=== PATIENT | female | born 1955 | race Asian ===

== ENCOUNTER → 2017-10-20 | Outpatient (CLI) | payer BC, MEDICAID ==
[~2017-10-20] MED LIST: ASPI325T17 PO; ATEN25TA PO; ATOR20TA9 PO; GEMF600T3 PO; HYDR-3240 PO; LEVO88TA4 PO; SENN-25 PO; TRAM50TA2 PO; TRIA50CA PO; VENL75TA PO
== END | disposition home or self-care (01) ==
LOC: CFH 15:45
PROVIDERS: ATTEND Internal Medicine
DX: R51 Headache (principal)
CPT/HCPCS: 70450

== ENCOUNTER → 2020-04-11 | Outpatient (CLI) | payer BC, OTHER ==
[~2020-04-11] MED LIST changes: +ATOR20TA37 PO; -ATOR20TA9 PO; -GEMF600T3 PO; +GEMF600T8 PO
== END | disposition home or self-care (01) ==
LOC: CFH 10:58
PROVIDERS: ATTEND Internal Medicine
DX: Z12.2 Encounter for screening for malignant neoplasm of respiratory organs (principal); F17.210 Nicotine dependence, cigarettes, uncomplicated; I25.10 Atherosclerotic heart disease of native coronary artery without angina pectoris; I70.0 Atherosclerosis of aorta; M85.88 Other specified disorders of bone density and structure, other site
CPT/HCPCS: G0297

== ENCOUNTER 2021-04-03 12:41 | Inpatient (IN) | payer BC ==
[~2021-04-03] VITALS: Ht 154.9 cm; Wt 66.5 kg
[~2021-04-03 12:41] MED LIST changes: +GEMF-31 PO; -GEMF600T8 PO; +HYDR-2214 PO; -HYDR-3240 PO
[2021-04-03 13:04] LABS: BASOPHILS % (AUTO) 1 % (0-1); EOSINOPHILS % (AUTO) 1 % (1-7); LYMPHOCYTES % (AUTO) 23 % (22-44); MEAN CORPUSCULAR HEMOGLOBIN 30.6 pg (27.0-34.8); MEAN CORPUSCULAR HGB CONC 34.4 g/dL (32.4-35.8); MEAN PLATELET VOLUME 6.9 fL (7.4-10.4); MONOCYTES % (AUTO) 3 % (2-9); NEUTROPHILS % (AUTO) 72 % (42-75); PLATELET COUNT 337 x10^3/uL (130-400); RED BLOOD COUNT 5.48 x10^6/uL (3.82-5.3); RED CELL DISTRIBUTION WIDTH 14.7 % (9.6-15.2)
[2021-04-03 13:15] LABS: INTERNATIONAL NORMALIZED RATIO 0.94 (0.93-1.1); PROTHROMBIN TIME 10.1 Seconds (9.6-11.5)
--- NOTE | 2021-04-03 13:20 | NUR ---
late entry d/t patient care: code neuro cancelled per edmd, tpa not indicated as pt is a hemmorhagic stroke
--- NOTE | 2021-04-03 13:20 | NUR ---
LATE ENTRY FOR 1320 D/T PATIENT CARE: STROKE PRE-ALERT CALLED AT 1237 PT [place] [facility] [place] PT ARRIVED WITH NPA IN PLACE, NON-REBREATHER AT 15L/MIN , SNORING RESPIRATIONS ROOM AIR SAT AIRCRAFT LINE ASSEMBLER 80%, FSBS AIRCRAFT LINE ASSEMBLER 130 PT INTUBATED AT 1300, 7.5 SIZE ET TUBE. PROPOFOL STARATED AT 5 MCG/KG/HR. PT TO CT AT 1305 PT BACL FRP, CT AT 1320, PT TO CT ACCOMPANIED BY THIS NUCLEAR FUEL ENRICHMENT TECHNICIAN PRESENT ON ARRIVAL, UPDATED CONTINUOUSLY Addendum: 04/03/21 at 1607 by ELI LATE ENTRY FOR 1320 D/T PATIENT CARE: STROKE PRE-ALERT CALLED AT 1237 PT AR[place]IV[place] [facility] [place] 1240 PT ARRIVED WITH NPA IN PLACE, NON-REBREATHER AT 15L/MIN , SNORING RESPIRATIONS ROOM AIR SAT AIRCRAFT LINE ASSEMBLER 80%, FSBS AIRCRAFT LINE ASSEMBLER 130 PT INTUBATED AT 1300, 7.5 SIZE ET TUBE 23 CM AT LIP. PROPOFOL STARATED AT 5 MCG/KG/HR. PT TO CT AT 1305 PT BACK FROM, CT AT 1320, PT TO CT ACCOMPANIED BY THIS NUCLEAR FUEL ENRICHMENT TECHNICIAN PRESENT ON ARRIVAL, UPDATED CONTINUOUSLY
[2021-04-03] MEDS ORDERED: PLEASE ENTER HEIGHT AND WEIGHT MC SCH (13:30)
--- NOTE | 2021-04-03 13:31 | NUR ---
NICARDIPINE REQUESTED FROM PHARMACY
[2021-04-03] MEDS ORDERED: VECURONIUM 10 MG IVPush ONE (14:00)
[2021-04-03] MEDS ORDERED: PROPOFOL 100 ML IV PRN (14:00)
[2021-04-03] MEDS ORDERED: ETOMIDATE 40 MG/20 ML IVPush ONE (14:00)
--- NOTE | 2021-04-03 14:05 | NUR ---
REPORT GIVEN TO DISH CLOTH INSPECTORHUSAM RAND.
--- NOTE | 2021-04-03 14:10 | NUR ---
NEUROSURGEON AT BEDSIDE. PT RESPONSIVE TO PAINFUL STIMULI. SURGEON GIVEN REPORT. NICARDIPINE TITRATED TO 5 MG/HR, REPEAT BP NOW 126/54. NICARDIPINE TITRATED BACK DOWN TO 3 MG/HR PER ERP GRAUSZ'S ORDER.
--- NOTE | 2021-04-03 14:21 | NUR ---
HOSPITALIST MD COURTNEY AT BEDSIDE FOR ASSESSMENT. REPORT GIVEN TO . REPEAT BP 115/55, NICARDIPINE TITRATED DOWN TO 2.5MG/HR.
[2021-04-03] MEDS ORDERED: ACETAMINOPHEN 325 MG TABLET PO PRN ×2 (14:30→16:30)
[2021-04-03] MEDS ORDERED: ENALAPRILAT 1.25 MG/ML, 2ML IVPush PRN (14:30)
[2021-04-03] MEDS ORDERED: LABETALOL 5MG/ML, 20ML IVPush PRN (14:30)
[2021-04-03] MEDS ORDERED: OMNIPAQUE 350 MG/ML, 100ML BOTTLE ONE (14:30)
[2021-04-03] MEDS ORDERED: OXYcodone IR 5MG TABLET PO PRN (14:30)
[2021-04-03] MEDS ORDERED: morphine SULFATE 10 MG/ML, 1ML IVPush PRN (14:30)
[2021-04-03] MEDS ORDERED: POLYETHYLENE GLYCOL 17 GM PACKET PO PRN (14:30)
[2021-04-03] MEDS ORDERED: BISACODYL 10 MG SUPP PR PRN (14:30)
[2021-04-03] MEDS ORDERED: LORazepam 2 MG/ML, 1ML IVPush PRN ×2 (14:30→16:30)
[2021-04-03] MEDS ORDERED: SODIUM CHLORIDE FLUSH 10ML SYR IVF PRN (14:30)
[2021-04-03] MEDS ORDERED: ONDANSETRON 2MG/ML, 2ML IVPush PRN ×2 (14:30→16:30)
--- NOTE | 2021-04-03 14:30 | NUR ---
LATE ENTRY FOR 1430: RT AT BEDSIDE, NOTIFIED SPO2 90%, FIO2 ADJUSTED FROM 40% TO 60%. OTHER VENT SETTINGS REMAIN THE SAME. 450ML TIDAL VOLUME, PEEP 5, RESP RATE 20.
[2021-04-03] MEDS ORDERED: VANCOMYCIN 1,000 MG ONE (14:32)
[2021-04-03] MEDS ORDERED: EPINEPHRINE 1 MG/ML, 1ML ONE (14:32)
[2021-04-03] MEDS ORDERED: THROMBIN 5,000 UNIT VIAL TP ONE (14:32)
[2021-04-03] MEDS ORDERED: BUPIVACAINE/PF 0.5% ONE (14:32)
[2021-04-03] MEDS ORDERED: BACITRACIN OINT 500U/GM, 15 GM ONE (14:43)
--- NOTE | 2021-04-03 14:45 | NUR ---
COVID SAMPLE COLLECTED AND WALKED TO LAB
[2021-04-03 14:51] VITALS: BP 136/62
--- NOTE | 2021-04-03 15:00 | NUR ---
PT TO OR AT THIS TIME, REPORT GIVEN TO ANESTHESIOLOGIST AT BEDSIDE. NG IN PLACE [employer], UNABLE TO PLACE ELAM PRIOR TO PT DEPART FOLEYS OUT OF STOCK IN ED, PER ANESTHESIOLOGIST, PT OK TO GO UP WITHOUT LEAM, OR TO PLACE ELAM. UPON DEPART, PT LOCALIZES TO PAINFUL STIMULI, PUPILS EQUAL ROUND AND REACTIVE AT 2MM. PT MOVES ALL EXTREMITIES WITH EXCEPTION TO LEFT ARM, THIS IS BASELINE SINCE ARRIVAL. FACE SYMMETRICAL. FAMILY NOTIFIED OF DEPARTURE, MULTIPLE FAMILY MEMBERS AT BEDSIDE PRIOR TO TRANSPORT.
[2021-04-03] MEDS ORDERED: CEFAZOLIN 1,000 MG ONE (15:25)
[2021-04-03] MEDS ORDERED: ROCURONIUM 10MG/ML,5ML ONE (15:25)
[2021-04-03] MEDS ORDERED: FENTANYL PF 100 MCG/2ML ONE (15:25)
[2021-04-03] MEDS ORDERED: BUPIVACAINE/PF-EPI 0.5% 1:200K INFIL ONE (15:38)
--- NOTE | 2021-04-03 16:01 | NUR ---
LATE ENTRY D/T PATIENT CARE: PT'S SISTER PROVIDED PHONE NUMBER BEFORE LEAVING IN CASE STAFF NEED TO CONTACT FAMILY. NAME MOUNIKA MARRUFO, PHONE [phone]
--- NOTE | 2021-04-03 16:21 | NUR ---
REPORT GIVEN TO CCU HUSAM SILVERMAN. THIS RN UNABLE TO COMPLETE MED REC FAMILY WAS UNABLE TO RECALL PT'S HOME MEDS, AND PT TOO ALTERED TO COMPLETE MED REC ON ARRIVAL. RECEIVING HUSAM SILVERMAN AND HOSPITALIST SHERWIN WALDRON.
[2021-04-03] MEDS ORDERED: MEPERIDINE/PF 25MG/0.5ML IVPush PRN (16:30)
[2021-04-03] MEDS ORDERED: LABETALOL 5MG/ML, 20ML IV PRN (16:30)
[2021-04-03] MEDS ORDERED: FENTANYL PF 100 MCG/2ML IV PRN (16:30)
[2021-04-03] MEDS ORDERED: ALBUTEROL SULFATE 2.5 MG/3 ML NPPB PRN (16:30)
[2021-04-03] MEDS ORDERED: MIDAZOLAM 1 MG/ML, 2ML IV PRN (16:30)
[2021-04-03] MEDS ORDERED: HYDROmorphone 1 MG/ML, 1ML INJ IVPush PRN (16:30)
[2021-04-03] MEDS ORDERED: PROMETHAZINE 12.5 MG SUPP PR PRN (16:30)
[2021-04-03] MEDS ORDERED: DIAZEPAM 5 MG/ML, 2ML IVPush PRN (16:30)
[2021-04-03] MEDS ORDERED: EPHEDRINE 50 MG/ML, 1ML IVPush PRN (16:30)
[2021-04-03] MEDS ORDERED: OXYcodone 5 MG/5 ML ORAL.SOL UDC PO PRN (16:30)
[2021-04-03] MEDS ORDERED: hydrALAzine 20 MG/ML, 1ML IV PRN (16:30)
[2021-04-03] MEDS ORDERED: DIPHENHYDRAMINE 50 MG/ML, 1ML IVPush PRN ×2 (16:30)
[2021-04-03] MEDS ORDERED: PROMETHAZINE 25 MG/ML, 1ML IVPush PRN (16:30)
[2021-04-03] MEDS ORDERED: ETOMIDATE 20 MG/10 ML ONE (19:19)
[2021-04-03] MEDS ORDERED: 0.9 % SODIUM CHLORIDE 10 ML VIAL ONE (19:19)
[2021-04-03] MEDS ORDERED: PROPOFOL 10 MG/ML, 100ML IV ONE (19:19)
[2021-04-03] MEDS ORDERED: VECURONIUM 10 MG ONE (19:19)
[2021-04-03] MEDS ORDERED: DEXTROSE 4 GM TAB.CHEW PO PRN (20:30)
[2021-04-03] MEDS ORDERED: PHARMACY MAY ADJ FOR RENAL FX MC SCH (20:30)
[2021-04-03] MEDS ORDERED: FENTANYL PF 1,000 MCG in SODIUM CHLORIDE 0.9% 80 ML IV PRN (20:30)
[2021-04-03] MEDS ORDERED: NOREPINEPHRINE 8 MG in SODIUM CHLORIDE 0.9% 242 ML IV PRN (20:30)
[2021-04-03] MEDS ORDERED: LIDOCAINE-MPF 1%, 2ML ENDO PRN (20:30)
[2021-04-03] MEDS ORDERED: DEXTROSE 50%, 50ML SYRINGE IVPush PRN (20:30)
[2021-04-03] MEDS ORDERED: GLUCAGON 1 MG IM PRN (20:30)
[2021-04-03] MEDS: LEVETIRACETAM 500 MG in SODIUM CHLORIDE 0.9% 100 ML IV SCH (22:13)
[2021-04-03] MEDS: ATENOLOL 25 MG TABLET PO SCH (22:13)
[2021-04-03] MEDS: NS + 20MEQ KCL 1,000 ML IV SCH (22:13)
[2021-04-03] MEDS: SODIUM CHLORIDE FLUSH 10ML SYR IVF SCH (22:14)
[2021-04-03] MEDS: ATORVASTATIN 20 MG TABLET PO SCH (22:14)
[2021-04-03] MEDS: GEMFIBROZIL 600 MG TABLET PO SCH (22:14)
[2021-04-03] MEDS: FAMOTIDINE 20 MG/2 ML IVPush SCH (22:15)
[2021-04-04] MEDS: PROPOFOL 100 ML IV PRN ×3 (01:07→13:55)
[2021-04-04 04:47] LABS: BASOPHILS % (AUTO) 0 % (0-1); EOSINOPHILS % (AUTO) 0 % (1-7); LYMPHOCYTES % (AUTO) 9 % (22-44); MEAN CORPUSCULAR HEMOGLOBIN 29.7 pg (27.0-34.8); MEAN CORPUSCULAR HGB CONC 33.6 g/dL (32.4-35.8); MEAN PLATELET VOLUME 6.8 fL (7.4-10.4); MONOCYTES % (AUTO) 5 % (2-9); NEUTROPHILS % (AUTO) 86 % (42-75); PLATELET COUNT 318 x10^3/uL (130-400); RED BLOOD COUNT 4.61 x10^6/uL (3.82-5.3); RED CELL DISTRIBUTION WIDTH 14.9 % (9.6-15.2)
[2021-04-04 05:00] LABS: ALBUMIN 3.1 g/dL (3.4-5.0); ANION GAP 6 mmol/L (5-15); CALCIUM 8.3 mg/dL (8.5-10.1); CHLORIDE 111 mmol/L (98-107); CREATININE 1.07 mg/dL (0.55-1.02)
[2021-04-04 05:20] LABS: ALANINE AMINOTRANSFERASE 14 U/L (12-78); ALKALINE PHOSPHATASE 91 U/L (45-117); BILIRUBIN,TOTAL 0.3 mg/dL (0.2-1.0); TOTAL PROTEIN 6.9 g/dL (6.4-8.2)
[2021-04-04] MEDS: NS + 20MEQ KCL 1,000 ML IV SCH (06:01)
[2021-04-04] MEDS: LEVOTHYROXINE 88 MCG TABLET PO SCH (06:01)
[2021-04-04] MEDS ORDERED: MAGNESIUM SULFATE PMX 4GM/100M 100 ML IVPB ONE (06:30)
[2021-04-04] MEDS ORDERED: SODIUM CHLORIDE 0.9% 1,000 ML IV SCH (06:30)
[2021-04-04] MEDS ORDERED: VENLAFAXINE 75MG TABLET PO SCH (09:00)
[2021-04-04] MEDS: SENNA/DOCUSATE TABLET PO SCH (10:24)
[2021-04-04] MEDS: LISINOPRIL 10 MG TABLET PO SCH ×2 (10:24→20:25)
[2021-04-04] MEDS: FAMOTIDINE 20 MG/2 ML IVPush SCH ×2 (10:24→20:25)
[2021-04-04] MEDS: ATENOLOL 25 MG TABLET PO SCH ×2 (10:24→20:25)
[2021-04-04] MEDS: SODIUM CHLORIDE FLUSH 10ML SYR IVF SCH ×2 (10:24→20:25)
[2021-04-04] MEDS: GEMFIBROZIL 600 MG TABLET PO SCH ×2 (10:24→20:25)
[2021-04-04] MEDS: LEVETIRACETAM 500 MG in SODIUM CHLORIDE 0.9% 100 ML IV SCH ×2 (10:29→20:25)
--- NOTE | 2021-04-04 10:40 | NUR ---
TF recs if needed: Promote w/ end goal rate of 55 mL/hr (ON propofol); 60 mL/hr (OFF propofol). Addendum: 04/04/21 at [address] Amended: Links added.
[2021-04-04] MEDS ORDERED: METO-93 PO (12:04)
[2021-04-04] MEDS ORDERED: AMLO2.5T5 PO (12:04)
[2021-04-04 12:40] LABS: MICROSCOPIC NOT IND
[2021-04-04] MEDS: ATORVASTATIN 20 MG TABLET PO SCH (20:25)
[2021-04-05 05:00] LABS: BASOPHILS % (AUTO) 0 % (0-1); EOSINOPHILS % (AUTO) 0 % (1-7); LYMPHOCYTES % (AUTO) 6 % (22-44); MEAN CORPUSCULAR HEMOGLOBIN 29.7 pg (27.0-34.8); MEAN CORPUSCULAR HGB CONC 33.7 g/dL (32.4-35.8); MEAN PLATELET VOLUME 6.9 fL (7.4-10.4); MONOCYTES % (AUTO) 4 % (2-9); NEUTROPHILS % (AUTO) 89 % (42-75); PLATELET COUNT 303 x10^3/uL (130-400); RED BLOOD COUNT 4.15 x10^6/uL (3.82-5.3); RED CELL DISTRIBUTION WIDTH 14.8 % (9.6-15.2)
[2021-04-05 05:17] LABS: CHLORIDE 117 mmol/L (98-107)
[2021-04-05] MEDS: LEVOTHYROXINE 88 MCG TABLET PO SCH (05:22)
[2021-04-05 05:23] LABS: ANION GAP 9 mmol/L (5-15); CALCIUM 8.5 mg/dL (8.5-10.1); CREATININE 0.88 mg/dL (0.55-1.02)
[2021-04-05] MEDS: SENNA/DOCUSATE TABLET PO SCH (09:00)
[2021-04-05] MEDS: GEMFIBROZIL 600 MG TABLET PO SCH (09:00)
[2021-04-05] MEDS: LISINOPRIL 10 MG TABLET PO SCH (09:00)
[2021-04-05] MEDS: ATENOLOL 25 MG TABLET PO SCH (09:00)
[2021-04-05] MEDS: LEVETIRACETAM 500 MG in SODIUM CHLORIDE 0.9% 100 ML IV SCH (09:59)
[2021-04-05] MEDS: FAMOTIDINE 20 MG/2 ML IVPush SCH (10:05)
[2021-04-05] MEDS: SODIUM CHLORIDE FLUSH 10ML SYR IVF SCH (10:05)
[2021-04-05] MEDS ORDERED: SODIUM CHLORIDE 0.9% 1,000 ML IV SCH (14:00)
[2021-04-05] MEDS ORDERED: DESMOPRESSIN 4 MCG/ML IVPush ONE (14:30)
[2021-04-05 16:28] LABS: BASOPHILS % (AUTO) 0 % (0-1); EOSINOPHILS % (AUTO) 0 % (1-7); LYMPHOCYTES % (AUTO) 15 % (22-44); MEAN CORPUSCULAR HEMOGLOBIN 30.2 pg (27.0-34.8); MEAN CORPUSCULAR HGB CONC 33.3 g/dL (32.4-35.8); MEAN PLATELET VOLUME 7.3 fL (7.4-10.4); MONOCYTES % (AUTO) 4 % (2-9); NEUTROPHILS % (AUTO) 80 % (42-75); PLATELET COUNT 288 x10^3/uL (130-400); RED BLOOD COUNT 4.12 x10^6/uL (3.82-5.3)
[2021-04-05 16:38] LABS: ALBUMIN 2.4 g/dL (3.4-5.0); ANION GAP 4 mmol/L (5-15); CALCIUM 8.4 mg/dL (8.5-10.1); CHLORIDE 128 mmol/L (98-107)
[2021-04-05 16:41] LABS: ALANINE AMINOTRANSFERASE 12 U/L (12-78); ALKALINE PHOSPHATASE 74 U/L (45-117); BILIRUBIN,TOTAL 0.4 mg/dL (0.2-1.0); CREATININE 0.98 mg/dL (0.55-1.02)
== END 2021-04-05 10:59 | DRG 23 ==
LOC: ED 12:48 → EDIP 14:17 → CCU 20:01 → UNDODISIN 04-05 14:48
PROVIDERS: ADMIT Internal Medicine; ATTEND Internal Medicine
PROC: 5A1945Z Respiratory Ventilation, 24-96 Consecutive Hours (ICD-10-PCS; 2021-04-03)
PROC: 0BH17EZ Insertion of Endotracheal Airway into Trachea, Via Natural or Artificial Opening (ICD-10-PCS; 2021-04-03)
PROC: 009630Z Drainage of Cerebral Ventricle with Drainage Device, Percutaneous Approach (ICD-10-PCS; principal; 2021-04-03 14:00)
DX: I61.0 Nontraumatic intracerebral hemorrhage in hemisphere, subcortical (principal); J96.00 Acute respiratory failure, unspecified whether with hypoxia or hypercapnia; G93.5 Compression of brain; G91.1 Obstructive hydrocephalus; Z99.11 Dependence on respirator [ventilator] status; I16.1 Hypertensive emergency; I10 Essential (primary) hypertension; D75.1 Secondary polycythemia; Z20.822 Contact with and (suspected) exposure to COVID-19; Z66 Do not resuscitate; E78.00 Pure hypercholesterolemia, unspecified; E78.5 Hyperlipidemia, unspecified; E87.6 Hypokalemia; E89.0 Postprocedural hypothyroidism; Z90.49 Acquired absence of other specified parts of digestive tract; Z98.2 Presence of cerebrospinal fluid drainage device; Z86.73 Personal history of transient ischemic attack (TIA), and cerebral infarction without residual deficits
CPT/HCPCS: 31500; 36600; 96374; 99291; 99292; S0020; 70450; 70496; 70498; 71045; 71250; 74176; 80047; 80048; 80053; 81003; 82803; 83735; 84100; 84478; 85025; 85610; 85730; 87070; 87077; 87081; 87205; 87635; 93005; 94002; 94003; C1729; G0378; J0171; J0690; J1953; J2597; J2704; J3010; J3370; J3480; Q9967; J3475; J7030; J7050

== ENCOUNTER 2021-04-05 11:00 | Inpatient (IN) | payer OTHER ==
[~2021-04-05] VITALS: Ht 170.2 cm; Wt 68.0 kg
[~2021-04-05 11:00] MED LIST changes: +AMLO2.5T5 PO; +METO-93 PO
[2021-04-05] MEDS ORDERED: POTASSIUM CHLORIDE 40 MEQ in SODIUM CHLORIDE 0.9% 100 ML IV PRN (20:30)
[2021-04-05] MEDS ORDERED: LEVOTHYROXINE 100 MCG INJ IV ONE (20:30)
[2021-04-05] MEDS ORDERED: DOPAMINE/D5W PMX 250 ML IV PRN (20:30)
[2021-04-05] MEDS ORDERED: MAGNESIUM SULFATE PMX 4GM/100M 100 ML IVPB PRN (20:30)
[2021-04-05] MEDS ORDERED: POTASSIUM CHLORIDE PMX 20MEQ/100 ML IVPB PRN (20:30)
[2021-04-05] MEDS ORDERED: MAGNESIUM SULFATE PMX 2GM/50ML 50 ML IVPB PRN (20:30)
[2021-04-05] MEDS ORDERED: CALCIUM CHLORIDE 13.6 MEQ in SODIUM CHLORIDE 0.9% 50 ML IV PRN (20:30)
[2021-04-05 20:53] LABS: BASOPHILS % (AUTO) 0 % (0-1); EOSINOPHILS % (AUTO) 0 % (1-7); LYMPHOCYTES % (AUTO) 15 % (22-44); MEAN CORPUSCULAR HEMOGLOBIN 29.6 pg (27.0-34.8); MEAN CORPUSCULAR HGB CONC 32.9 g/dL (32.4-35.8); MEAN PLATELET VOLUME 6.8 fL (7.4-10.4); MONOCYTES % (AUTO) 5 % (2-9); NEUTROPHILS % (AUTO) 79 % (42-75); PLATELET COUNT 270 x10^3/uL (130-400); RED BLOOD COUNT 3.97 x10^6/uL (3.82-5.3); RED CELL DISTRIBUTION WIDTH 15.1 % (9.6-15.2)
[2021-04-05] MEDS ORDERED: POTASSIUM PHOSPHATE 30 MMOL in SODIUM CHLORIDE 0.9% 250 ML IV PRN (21:00)
[2021-04-05] MEDS ORDERED: VASOPRESSIN 20 UNIT in SODIUM CHLORIDE 0.9% 99 ML IV PRN (21:00)
[2021-04-05] MEDS: ARTIFICIAL TEARS 15 DROP/ML BOTTLE EACHEYE SCH ×2 (21:00→23:00)
[2021-04-05] MEDS ORDERED: DEXTROSE 50%, 50ML SYRINGE IVPush PRN (21:00)
[2021-04-05] MEDS ORDERED: POTASSIUM PHOSPHATE 21 MMOL in SODIUM CHLORIDE 0.9% 250 ML IV PRN (21:00)
[2021-04-05] MEDS: SODIUM CHLORIDE FLUSH 10ML SYR IVF SCH (21:00)
[2021-04-05] MEDS ORDERED: POTASSIUM CHLORIDE 60 MEQ in SODIUM CHLORIDE 0.9% 100 ML IV PRN (21:00)
[2021-04-05] MEDS ORDERED: FLUCONAZOLE 200 MG/100 ML 100 ML IV ONE (21:00)
[2021-04-05] MEDS ORDERED: PIPERACILLIN/TAZO 3.375 GM in SODIUM CHLORIDE 0.9% 50 ML IVPB SCH (21:00)
[2021-04-05] MEDS ORDERED: NOREPINEPHRINE 8 MG in SODIUM CHLORIDE 0.9% 242 ML IV PRN (21:00)
[2021-04-05] MEDS ORDERED: D5%-0.45NACL+KCL 20MEQ 1,000 ML IV SCH (21:00)
[2021-04-05] MEDS ORDERED: METHYLPREDNISOLONE SOD SUCC IV SCH (21:00)
[2021-04-05] MEDS ORDERED: POTASSIUM PHOSPHATE 15 MMOL in SODIUM CHLORIDE 0.9% 250 ML IV PRN (21:00)
[2021-04-05] MEDS ORDERED: DEXTROSE 5% IV SCH (21:00)
[2021-04-05] MEDS ORDERED: PHENYLEPHRINE 50 MG in SODIUM CHLORIDE 0.9% 245 ML IV PRN (21:00)
[2021-04-05 21:05] LABS: ALANINE AMINOTRANSFERASE 14 U/L (12-78); ALBUMIN 2.5 g/dL (3.4-5.0); ANION GAP 3 mmol/L (5-15); CALCIUM 8.6 mg/dL (8.5-10.1); CHLORIDE 130 mmol/L (98-107); CREATININE 1.03 mg/dL (0.55-1.02)
[2021-04-05 21:07] LABS: INTERNATIONAL NORMALIZED RATIO 0.97 (0.93-1.1); PROTHROMBIN TIME 10.4 Seconds (9.6-11.5)
[2021-04-05 21:08] LABS: ALKALINE PHOSPHATASE 75 U/L (45-117); BILIRUBIN, DIRECT < 0.1 mg/dL (0.1-0.2); BILIRUBIN,INDIRECT 0.2 mg/dL (0.0-2.0); BILIRUBIN,TOTAL 0.3 mg/dL (0.2-1.0)
[2021-04-05] MEDS: PANTOPRAZOLE 40 MG IV IV SCH (21:09)
[2021-04-05] MEDS: PIPERACILLIN/TAZO 3.375 GM in SODIUM CHLORIDE 0.9% 50 ML IVPB SCH (21:30)
[2021-04-05] MEDS: LEVOTHYROXINE 200 MCG in SODIUM CHLORIDE 0.9% 500 ML IV SCH (21:44)
[2021-04-05] MEDS: ALBUTEROL SULFATE 2.5MG/0.5ML NEB SCH (23:00)
[2021-04-05] MEDS ORDERED: POTASSIUM CHLORIDE 40 MEQ in SODIUM CHLORIDE 0.9% 500 ML IV PRN (23:30)
[2021-04-06] MEDS: ARTIFICIAL TEARS 15 DROP/ML BOTTLE EACHEYE SCH ×11 (01:00→21:59)
[2021-04-06 01:28] LABS: MICROSCOPIC AUTO
[2021-04-06] MEDS ORDERED: D5%-0.9% NACL 1,000 ML IV SCH (02:30)
[2021-04-06 02:43] LABS: BASOPHILS % (AUTO) 0 % (0-1); EOSINOPHILS % (AUTO) 0 % (1-7); LYMPHOCYTES % (AUTO) 4 % (22-44); MEAN CORPUSCULAR HEMOGLOBIN 30.3 pg (27.0-34.8); MEAN CORPUSCULAR HGB CONC 33.3 g/dL (32.4-35.8); MEAN PLATELET VOLUME 7.2 fL (7.4-10.4); MONOCYTES % (AUTO) 2 % (2-9); NEUTROPHILS % (AUTO) 94 % (42-75); PLATELET COUNT 238 x10^3/uL (130-400); RED BLOOD COUNT 3.83 x10^6/uL (3.82-5.3); RED CELL DISTRIBUTION WIDTH 15.3 % (9.6-15.2)
[2021-04-06 02:45] LABS: ALANINE AMINOTRANSFERASE 14 U/L (12-78); ALBUMIN 2.3 g/dL (3.4-5.0); ANION GAP 4 mmol/L (5-15); BILIRUBIN, DIRECT 0.1 mg/dL (0.1-0.2); CALCIUM 8.5 mg/dL (8.5-10.1); CHLORIDE 133 mmol/L (98-107); CREATININE 1.01 mg/dL (0.55-1.02)
[2021-04-06 02:48] LABS: ALKALINE PHOSPHATASE 76 U/L (45-117); BILIRUBIN,INDIRECT 0.2 mg/dL (0.0-2.0); BILIRUBIN,TOTAL 0.3 mg/dL (0.2-1.0); INTERNATIONAL NORMALIZED RATIO 0.99 (0.93-1.1); PROTHROMBIN TIME 10.6 Seconds (9.6-11.5); TOTAL PROTEIN 6.2 g/dL (6.4-8.2)
[2021-04-06] MEDS: ALBUTEROL SULFATE 2.5MG/0.5ML NEB SCH ×6 (03:00→23:00)
[2021-04-06] MEDS ORDERED: DEXTROSE 5% 1,000 ML IV SCH (03:30)
[2021-04-06] MEDS ORDERED: PLEASE ENTER HEIGHT AND WEIGHT MC SCH (05:30)
[2021-04-06] MEDS ORDERED: SODIUM BICARB 8.4%, 50ML SYRINGE ONE (05:54)
[2021-04-06] MEDS ORDERED: SODIUM BICARB 8.4%, 50ML SYRINGE IVPush ONE (06:00)
[2021-04-06] MEDS: PIPERACILLIN/TAZO 3.375 GM in SODIUM CHLORIDE 0.9% 50 ML IVPB SCH ×3 (06:11→21:23)
[2021-04-06 08:43] LABS: BASOPHILS % (AUTO) 0 % (0-1); EOSINOPHILS % (AUTO) 0 % (1-7); LYMPHOCYTES % (AUTO) 2 % (22-44); MEAN CORPUSCULAR HEMOGLOBIN 29.1 pg (27.0-34.8); MEAN CORPUSCULAR HGB CONC 31.9 g/dL (32.4-35.8); MEAN PLATELET VOLUME 7.3 fL (7.4-10.4); MONOCYTES % (AUTO) 2 % (2-9); NEUTROPHILS % (AUTO) 96 % (42-75); PLATELET COUNT 239 x10^3/uL (130-400); RED BLOOD COUNT 3.95 x10^6/uL (3.82-5.3); RED CELL DISTRIBUTION WIDTH 15.1 % (9.6-15.2)
[2021-04-06 08:43] LABS: MICROSCOPIC NOT IND
[2021-04-06] MEDS: DEXTROSE 5% 1,000 ML IV SCH ×3 (08:45→22:32)
[2021-04-06] MEDS: SODIUM CHLORIDE FLUSH 10ML SYR IVF SCH ×2 (08:46→20:53)
[2021-04-06 08:49] LABS: INTERNATIONAL NORMALIZED RATIO 0.97 (0.93-1.1); PROTHROMBIN TIME 10.4 Seconds (9.6-11.5)
[2021-04-06 08:55] LABS: ALBUMIN 2.4 g/dL (3.4-5.0); BILIRUBIN, DIRECT 0.1 mg/dL (0.1-0.2); CALCIUM 8.2 mg/dL (8.5-10.1); CHLORIDE 128 mmol/L (98-107)
[2021-04-06 08:58] LABS: ALANINE AMINOTRANSFERASE 14 U/L (12-78); ALKALINE PHOSPHATASE 76 U/L (45-117); BILIRUBIN,INDIRECT 0.1 mg/dL (0.0-2.0); BILIRUBIN,TOTAL 0.2 mg/dL (0.2-1.0); CREATININE 1.06 mg/dL (0.55-1.02); TOTAL PROTEIN 6.3 g/dL (6.4-8.2)
[2021-04-06 09:02] LABS: ANION GAP 3 mmol/L (5-15)
[2021-04-06] MEDS ORDERED: SODIUM BICARBONATE 1 MEQ/ML, 50ML VIAL IVPush ONE (10:00)
[2021-04-06] MEDS ORDERED: hydrALAzine 20 MG/ML, 1ML ONE (11:56)
[2021-04-06] MEDS ORDERED: hydrALAzine 20 MG/ML, 1ML IV ONE (12:00)
[2021-04-06 13:52] LABS: BASOPHILS % (AUTO) 0 % (0-1); EOSINOPHILS % (AUTO) 0 % (1-7); LYMPHOCYTES % (AUTO) 1 % (22-44); MEAN CORPUSCULAR HEMOGLOBIN 29.9 pg (27.0-34.8); MEAN CORPUSCULAR HGB CONC 33.1 g/dL (32.4-35.8); MONOCYTES % (AUTO) 2 % (2-9); NEUTROPHILS % (AUTO) 96 % (42-75); PLATELET COUNT 236 x10^3/uL (130-400); RED BLOOD COUNT 3.79 x10^6/uL (3.82-5.3); RED CELL DISTRIBUTION WIDTH 15.2 % (9.6-15.2)
[2021-04-06 14:03] LABS: ALANINE AMINOTRANSFERASE 13 U/L (12-78); ALBUMIN 2.4 g/dL (3.4-5.0); ANION GAP 5 mmol/L (5-15); CALCIUM 8.3 mg/dL (8.5-10.1); CHLORIDE 125 mmol/L (98-107); INTERNATIONAL NORMALIZED RATIO 0.97 (0.93-1.1); PROTHROMBIN TIME 10.4 Seconds (9.6-11.5)
[2021-04-06 14:04] LABS: BILIRUBIN, DIRECT < 0.1 mg/dL (0.1-0.2)
[2021-04-06 14:05] LABS: ALKALINE PHOSPHATASE 82 U/L (45-117); BILIRUBIN,TOTAL 0.1 mg/dL (0.2-1.0); TOTAL PROTEIN 6.3 g/dL (6.4-8.2)
[2021-04-06] MEDS ORDERED: POTASSIUM CHLORIDE 20 MEQ in SODIUM CHLORIDE 0.9% 250 ML IV ONE (15:00)
[2021-04-06] MEDS: REGULAR INSULIN 100 UNITS in SODIUM CHLORIDE 0.9% 99 ML IV SCH (18:12)
[2021-04-06] MEDS: LEVOTHYROXINE 200 MCG in SODIUM CHLORIDE 0.9% 500 ML IV SCH (18:22)
[2021-04-06] MEDS ORDERED: INSULIN REGULAR 100 UNITS/ML, 3ML VIAL IVPush ONE ×2 (18:30→23:30)
[2021-04-06 20:26] LABS: ALANINE AMINOTRANSFERASE 11 U/L (12-78); ANION GAP 3 mmol/L (5-15); CHLORIDE 126 mmol/L (98-107); CREATININE 1.03 mg/dL (0.55-1.02); INTERNATIONAL NORMALIZED RATIO 0.99 (0.93-1.1); PROTHROMBIN TIME 10.6 Seconds (9.6-11.5)
[2021-04-06 20:28] LABS: BILIRUBIN, DIRECT < 0.1 mg/dL (0.1-0.2)
[2021-04-06 20:29] LABS: ALKALINE PHOSPHATASE 74 U/L (45-117); BILIRUBIN,INDIRECT 0.1 mg/dL (0.0-2.0); BILIRUBIN,TOTAL 0.2 mg/dL (0.2-1.0); TOTAL PROTEIN 5.8 g/dL (6.4-8.2)
[2021-04-06 20:32] LABS: BASOPHILS % (AUTO) 0 % (0-1); EOSINOPHILS % (AUTO) 0 % (1-7); LYMPHOCYTES % (AUTO) 3 % (22-44); MEAN CORPUSCULAR HEMOGLOBIN 30.3 pg (27.0-34.8); MEAN CORPUSCULAR HGB CONC 33.6 g/dL (32.4-35.8); MEAN PLATELET VOLUME 7.3 fL (7.4-10.4); MONOCYTES % (AUTO) 5 % (2-9); NEUTROPHILS % (AUTO) 92 % (42-75); PLATELET COUNT 211 x10^3/uL (130-400); RED BLOOD COUNT 3.35 x10^6/uL (3.82-5.3); RED CELL DISTRIBUTION WIDTH 15.1 % (9.6-15.2)
[2021-04-06] MEDS: PANTOPRAZOLE 40 MG IV IV SCH (20:53)
[2021-04-06] MEDS ORDERED: POTASSIUM CHLORIDE PMX 100 ML IV ONE (21:30)
[2021-04-07] MEDS: ARTIFICIAL TEARS 15 DROP/ML BOTTLE EACHEYE SCH ×12 (00:49→22:00)
[2021-04-07 02:27] LABS: BASOPHILS % (AUTO) 0 % (0-1); EOSINOPHILS % (AUTO) 0 % (1-7); LYMPHOCYTES % (AUTO) 2 % (22-44); MEAN CORPUSCULAR HGB CONC 32.9 g/dL (32.4-35.8); MEAN PLATELET VOLUME 7.2 fL (7.4-10.4); MONOCYTES % (AUTO) 4 % (2-9); NEUTROPHILS % (AUTO) 94 % (42-75); PLATELET COUNT 219 x10^3/uL (130-400); RED BLOOD COUNT 3.47 x10^6/uL (3.82-5.3)
[2021-04-07 02:29] LABS: ALANINE AMINOTRANSFERASE 12 U/L (12-78); ALBUMIN 1.9 g/dL (3.4-5.0); ANION GAP 5 mmol/L (5-15); BILIRUBIN, DIRECT 0.1 mg/dL (0.1-0.2); CALCIUM 8.1 mg/dL (8.5-10.1); CHLORIDE 121 mmol/L (98-107)
[2021-04-07 02:30] LABS: INTERNATIONAL NORMALIZED RATIO 0.99 (0.93-1.1); PROTHROMBIN TIME 10.6 Seconds (9.6-11.5)
[2021-04-07 02:32] LABS: ALKALINE PHOSPHATASE 78 U/L (45-117); BILIRUBIN,INDIRECT 0.2 mg/dL (0.0-2.0); BILIRUBIN,TOTAL 0.3 mg/dL (0.2-1.0); CREATININE 0.95 mg/dL (0.55-1.02); TOTAL PROTEIN 5.7 g/dL (6.4-8.2)
[2021-04-07] MEDS: ALBUTEROL SULFATE 2.5MG/0.5ML NEB SCH ×2 (03:00→06:31)
[2021-04-07] MEDS ORDERED: INSULIN REGULAR 100 UNITS/ML, 3ML VIAL IVPush ONE ×2 (04:30→07:30)
[2021-04-07] MEDS: DEXTROSE 5% 1,000 ML IV SCH ×2 (05:22→11:25)
[2021-04-07] MEDS: PIPERACILLIN/TAZO 3.375 GM in SODIUM CHLORIDE 0.9% 50 ML IVPB SCH ×3 (05:22→21:04)
[2021-04-07] MEDS: SODIUM CHLORIDE FLUSH 10ML SYR IVF SCH ×2 (07:40→21:04)
[2021-04-07] MEDS: INSULIN REGULAR 100 UNITS/ML, 3ML VIAL SQ-INSULIN PRN ×5 (08:07→23:03)
[2021-04-07 08:13] LABS: BASOPHILS % (AUTO) 0 % (0-1); EOSINOPHILS % (AUTO) 0 % (1-7); LYMPHOCYTES % (AUTO) 2 % (22-44); MEAN CORPUSCULAR HEMOGLOBIN 29.7 pg (27.0-34.8); MEAN CORPUSCULAR HGB CONC 32.8 g/dL (32.4-35.8); MONOCYTES % (AUTO) 3 % (2-9); NEUTROPHILS % (AUTO) 94 % (42-75); PLATELET COUNT 208 x10^3/uL (130-400); RED BLOOD COUNT 3.32 x10^6/uL (3.82-5.3); RED CELL DISTRIBUTION WIDTH 14.9 % (9.6-15.2)
[2021-04-07 08:24] LABS: ALANINE AMINOTRANSFERASE 11 U/L (12-78); ALBUMIN 1.8 g/dL (3.4-5.0); ANION GAP 6 mmol/L (5-15); CHLORIDE 119 mmol/L (98-107); CREATININE 1.01 mg/dL (0.55-1.02)
[2021-04-07 08:26] LABS: ALKALINE PHOSPHATASE 79 U/L (45-117); BILIRUBIN,TOTAL 0.2 mg/dL (0.2-1.0); TOTAL PROTEIN 5.6 g/dL (6.4-8.2)
[2021-04-07 08:27] LABS: INTERNATIONAL NORMALIZED RATIO 1.02 (0.93-1.1); PROTHROMBIN TIME 10.9 Seconds (9.6-11.5)
[2021-04-07 08:29] LABS: BILIRUBIN, DIRECT 0.1 mg/dL (0.1-0.2); BILIRUBIN,INDIRECT 0.1 mg/dL (0.0-2.0)
[2021-04-07] MEDS ORDERED: ALBUTEROL SULFATE 2.5 MG/3 ML ONE (10:04)
[2021-04-07] MEDS: ALBUTEROL SULFATE 2.5 MG/3 ML NPPB SCH ×4 (10:13→22:00)
[2021-04-07 10:22] LABS: MICROSCOPIC AUTO
[2021-04-07] MEDS: REGULAR INSULIN 100 UNITS in SODIUM CHLORIDE 0.9% 99 ML IV SCH (11:19)
[2021-04-07] MEDS ORDERED: POTASSIUM CHLORIDE 40 MEQ in DEXTROSE 5% 100 ML IV ONE (12:00)
[2021-04-07] MEDS ORDERED: D5%-0.45NACL+KCL 20MEQ 1,000 ML IV SCH (12:30)
[2021-04-07 14:37] LABS: BASOPHILS % (AUTO) 0 % (0-1); EOSINOPHILS % (AUTO) 0 % (1-7); LYMPHOCYTES % (AUTO) 2 % (22-44); MEAN CORPUSCULAR HEMOGLOBIN 29.9 pg (27.0-34.8); MEAN CORPUSCULAR HGB CONC 33.1 g/dL (32.4-35.8); MONOCYTES % (AUTO) 4 % (2-9); NEUTROPHILS % (AUTO) 94 % (42-75); PLATELET COUNT 216 x10^3/uL (130-400); RED CELL DISTRIBUTION WIDTH 15.4 % (9.6-15.2)
[2021-04-07 14:41] LABS: ALANINE AMINOTRANSFERASE 11 U/L (12-78); ALBUMIN 1.8 g/dL (3.4-5.0); BILIRUBIN, DIRECT 0.1 mg/dL (0.1-0.2); CALCIUM 8.4 mg/dL (8.5-10.1); CHLORIDE 122 mmol/L (98-107); CREATININE 0.97 mg/dL (0.55-1.02)
[2021-04-07 14:53] LABS: ANION GAP 3 mmol/L (5-15)
[2021-04-07 14:57] LABS: ALKALINE PHOSPHATASE 85 U/L (45-117); BILIRUBIN,INDIRECT 0.1 mg/dL (0.0-2.0); BILIRUBIN,TOTAL 0.2 mg/dL (0.2-1.0); TOTAL PROTEIN 5.7 g/dL (6.4-8.2)
[2021-04-07 15:06] LABS: INTERNATIONAL NORMALIZED RATIO 1.02 (0.93-1.1); PROTHROMBIN TIME 10.9 Seconds (9.6-11.5)
[2021-04-07 16:21] LABS: MICROSCOPIC NOT IND
[2021-04-07 18:01] LABS: ANION GAP 3 mmol/L (5-15); CALCIUM 8.4 mg/dL (8.5-10.1); CHLORIDE 125 mmol/L (98-107); CREATININE 0.97 mg/dL (0.55-1.02)
[2021-04-07] MEDS: POTASSIUM CHLORIDE 20 MEQ in DEXTROSE 5% 1,000 ML IV SCH ×2 (18:30→20:11)
[2021-04-07 20:23] LABS: BASOPHILS % (AUTO) 0 % (0-1); EOSINOPHILS % (AUTO) 0 % (1-7); LYMPHOCYTES % (AUTO) 3 % (22-44); MEAN CORPUSCULAR HEMOGLOBIN 29.5 pg (27.0-34.8); MEAN CORPUSCULAR HGB CONC 32.9 g/dL (32.4-35.8); MEAN PLATELET VOLUME 7.2 fL (7.4-10.4); MONOCYTES % (AUTO) 6 % (2-9); NEUTROPHILS % (AUTO) 91 % (42-75); PLATELET COUNT 226 x10^3/uL (130-400); RED BLOOD COUNT 3.38 x10^6/uL (3.82-5.3); RED CELL DISTRIBUTION WIDTH 15.1 % (9.6-15.2)
[2021-04-07 20:35] LABS: INTERNATIONAL NORMALIZED RATIO 1.03 (0.93-1.1)
[2021-04-07 20:36] LABS: ALANINE AMINOTRANSFERASE 12 U/L (12-78); ALBUMIN 1.8 g/dL (3.4-5.0); ANION GAP 4 mmol/L (5-15); CALCIUM 8.7 mg/dL (8.5-10.1); CHLORIDE 127 mmol/L (98-107); CREATININE 0.98 mg/dL (0.55-1.02)
[2021-04-07 20:38] LABS: ALKALINE PHOSPHATASE 89 U/L (45-117); BILIRUBIN, DIRECT < 0.1 mg/dL (0.1-0.2); BILIRUBIN,INDIRECT 0.1 mg/dL (0.0-2.0); BILIRUBIN,TOTAL 0.2 mg/dL (0.2-1.0); TOTAL PROTEIN 5.8 g/dL (6.4-8.2)
[2021-04-07 20:53] LABS: MICROSCOPIC NOT IND
[2021-04-07] MEDS: PANTOPRAZOLE 40 MG IV IV SCH (21:05)
[2021-04-07] MEDS ORDERED: VASOPRESSIN 20 UNIT in SODIUM CHLORIDE 0.9% 99 ML IV PRN (21:30)
[2021-04-08] MEDS: ARTIFICIAL TEARS 15 DROP/ML BOTTLE EACHEYE SCH ×4 (00:03→06:12)
[2021-04-08] MEDS: POTASSIUM CHLORIDE 20 MEQ in DEXTROSE 5% 1,000 ML IV SCH ×3 (01:10→03:04)
[2021-04-08] MEDS: INSULIN REGULAR 100 UNITS/ML, 3ML VIAL SQ-INSULIN PRN (02:07)
[2021-04-08 02:29] LABS: BASOPHILS % (AUTO) 0 % (0-1); EOSINOPHILS % (AUTO) 0 % (1-7); LYMPHOCYTES % (AUTO) 1 % (22-44); MEAN CORPUSCULAR HEMOGLOBIN 30.3 pg (27.0-34.8); MEAN CORPUSCULAR HGB CONC 33.1 g/dL (32.4-35.8); MEAN PLATELET VOLUME 7.4 fL (7.4-10.4); MONOCYTES % (AUTO) 3 % (2-9); NEUTROPHILS % (AUTO) 96 % (42-75); PLATELET COUNT 226 x10^3/uL (130-400); RED BLOOD COUNT 3.32 x10^6/uL (3.82-5.3); RED CELL DISTRIBUTION WIDTH 15.6 % (9.6-15.2)
[2021-04-08] MEDS: ALBUTEROL SULFATE 2.5 MG/3 ML NPPB SCH ×2 (02:30→06:42)
[2021-04-08 02:32] LABS: MICROSCOPIC NOT IND
[2021-04-08 02:38] LABS: ANION GAP 7 mmol/L (5-15); CALCIUM 8.2 mg/dL (8.5-10.1); CHLORIDE 121 mmol/L (98-107); CREATININE 1.04 mg/dL (0.55-1.02)
[2021-04-08 02:39] LABS: ALANINE AMINOTRANSFERASE 11 U/L (12-78); ALBUMIN 1.7 g/dL (3.4-5.0); INTERNATIONAL NORMALIZED RATIO 1.01 (0.93-1.1); PROTHROMBIN TIME 10.8 Seconds (9.6-11.5)
[2021-04-08 02:41] LABS: ALKALINE PHOSPHATASE 97 U/L (45-117); BILIRUBIN,TOTAL 0.2 mg/dL (0.2-1.0); TOTAL PROTEIN 5.7 g/dL (6.4-8.2)
[2021-04-08 02:43] LABS: BILIRUBIN, DIRECT < 0.1 mg/dL (0.1-0.2); BILIRUBIN,INDIRECT 0.1 mg/dL (0.0-2.0)
[2021-04-08] MEDS: PIPERACILLIN/TAZO 3.375 GM in SODIUM CHLORIDE 0.9% 50 ML IVPB SCH (04:01)
[2021-04-08 06:07] LABS: MICROSCOPIC AUTO
[2021-04-08 06:09] LABS: BASOPHILS % (AUTO) 0 % (0-1); EOSINOPHILS % (AUTO) 0 % (1-7); LYMPHOCYTES % (AUTO) 2 % (22-44); MEAN CORPUSCULAR HEMOGLOBIN 29.7 pg (27.0-34.8); MEAN CORPUSCULAR HGB CONC 32.5 g/dL (32.4-35.8); MEAN PLATELET VOLUME 7.3 fL (7.4-10.4); MONOCYTES % (AUTO) 3 % (2-9); NEUTROPHILS % (AUTO) 95 % (42-75); PLATELET COUNT 215 x10^3/uL (130-400); RED BLOOD COUNT 3.33 x10^6/uL (3.82-5.3); RED CELL DISTRIBUTION WIDTH 15.3 % (9.6-15.2)
[2021-04-08 06:13] LABS: ALBUMIN 1.8 g/dL (3.4-5.0); ANION GAP 6 mmol/L (5-15); CALCIUM 8.4 mg/dL (8.5-10.1); CHLORIDE 118 mmol/L (98-107)
[2021-04-08 06:14] LABS: INTERNATIONAL NORMALIZED RATIO 1.02 (0.93-1.1); PROTHROMBIN TIME 10.9 Seconds (9.6-11.5)
[2021-04-08 06:18] LABS: ALANINE AMINOTRANSFERASE 13 U/L (12-78); ALKALINE PHOSPHATASE 100 U/L (45-117); BILIRUBIN,TOTAL 0.2 mg/dL (0.2-1.0); CREATININE 1.01 mg/dL (0.55-1.02); TOTAL PROTEIN 5.9 g/dL (6.4-8.2)
[2021-04-08] MEDS ORDERED: PHENYLEPHRINE 10 MG/ML ONE (09:41)
[2021-04-08] MEDS ORDERED: MANNITOL PMX 20% 500 ML ONE (10:04)
[2021-04-08] MEDS ORDERED: ALBUMIN HUMAN 5% 500 ML ONE (10:08)
[2021-04-08] MEDS ORDERED: LABETALOL 5MG/ML, 20ML ONE (10:09)
[2021-04-08] MEDS ORDERED: FUROSEMIDE 100 MG/10 ML IV ONE (10:30)
[2021-04-08] MEDS ORDERED: LEVOTHYROXINE 200 MCG in SODIUM CHLORIDE 0.9% 500 ML IV SCH (21:00)
[2021-04-08] MEDS ORDERED: PIPERACILLIN/TAZO 3.375 GM in DEXTROSE 5% 50 ML IVPB SCH (21:30)
== END 2021-04-08 14:30 | DRG 700 ==
LOC: CCU 11:00 → UNDOADMIN 14:49 → UNDODISIN 04-08 14:30
PROVIDERS: ATTEND Hospitalist
PROC: 02HV33Z Insertion of Infusion Device into Superior Vena Cava, Percutaneous Approach (ICD-10-PCS; principal; 2021-04-06)
PROC: B548ZZA Ultrasonography of Superior Vena Cava, Guidance (ICD-10-PCS; 2021-04-06)
PROC: 0T9B70Z Drainage of Bladder with Drainage Device, Via Natural or Artificial Opening (ICD-10-PCS; 2021-04-07)
DX: Z52.4 Kidney donor (principal); Z52.6 Liver donor
CPT/HCPCS: 36415; 36600; J7042; J7613; 71045; 80048; 80053; 80076; 81001; 81003; 82150; 82330; 82803; 82962; 83036; 83605; 83690; 83735; 84100; 85025; 85610; 85730; 86850; 86900; 94003; 94640; G0378; J1815; J2543; J2930; J3480; J7070; P9045; C9113; J0360; J2370; J3475; J7040; J7050